=== PATIENT | male | born 1970 | race Caucasian/White ===

== ENCOUNTER 2022-06-07 07:43 | Outpatient (CLI) | payer OTHER ==
--- NOTE | 2022-06-08 09:20 | MRI Report ---
PROCEDURE: THORACIC SPINE WO INDICATIONS: THORACIC BACK PAIN TECHNIQUE: Noncontrast sagittal T1 spine echo and T2 fast spin echo, sagittal STIR, axial T1 and T2 fast spin ec ho through the thoracic spine. COMPARISON: None. FINDINGS: Image quality: Excellent. Alignment and Curvature: There is normal bony alignment. Bone Marrow: Marrow is of normal overall signal. No acute vertebral body compression fractures. Sev eral levels of chronic appearing Schmorl's nodes can be seen. Spinal Cord: Visualized spinal cord is normal in size and signal. Paraspinous Soft Tissues: No paravertebral masses. Miscellaneous: Mild generalized degenerative changes are seen, with scattered levels of mild thoraci c spine disc space narrowing with associated endplate irregularity. No significant level of central c anal narrowing can be seen. No significant neuroforaminal narrowing is seen. IMPRESSION: No acute abnormality can be seen. Several remote appearing Schmorl's nodes can be seen. No significant neural foraminal or central canal narrowing can be seen. Reviewed by: Robert Guevara MD on 06/08/2022 8:19 AM [facility] Approved by: Robert Guevara MD on 06/08/2022 8:19 AM [facility] Station ID: [id number]
== END 2022-06-07 07:44 | disposition home or self-care (01) ==
LOC: DI 07:43
PROVIDERS: ATTEND Nurse Practitioner
DX: M51.44 Schmorl's nodes, thoracic region (principal)

== ENCOUNTER 2023-06-27 09:28 | Outpatient (CLI) | payer OTHER ==
[2023-06-27 09:59] LABS: BASOPHILS % (AUTO) 0.5 %; EOSINOPHILS # (AUTO) 0.1 10^3/uL (0.0-0.7); EOSINOPHILS % (AUTO) 0.8 %; HCT - HEMATOCRIT 43.5 % (42.0-52.0); HGB - HEMOGLOBIN 14.7 g/dL (14.0-18.0); LYMPHOCYTES # (AUTO) 1.6 10^3/uL (1.5-3.5); LYMPHOCYTES % (AUTO) 26.6 %; MEAN CORPUSCULAR HEMOGLOBIN 33.2 pg (27.0-31.0); MEAN CORPUSCULAR HGB CONC 33.8 g/dL (32.0-36.0); MEAN CORPUSCULAR VOLUME 98.2 fL (80.0-94.0); MONOCYTES # (AUTO) 0.4 10^3/uL (0.0-1.0); MONOCYTES % (AUTO) 6.7 %; NEUTROPHILS # (AUTO) 3.9 10^3/uL (1.5-6.6); NEUTROPHILS % (AUTO) 65.2 %; PLT - PLATELET COUNT 256 10^3/uL (130-450); RED BLOOD COUNT 4.43 10^6/uL (4.70-6.10); RED CELL DISTRIBUTION WIDTH 12.1 % (12.0-15.0); WHITE BLOOD COUNT 5.9 x10^3/uL (4.8-10.8)
[2023-06-27 10:24] LABS: ALBUMIN/GLOBULIN RATIO 1.5 (1.0-2.2); ALKALINE PHOSPHATASE 66 IU/L (42-121); ALT ALANINE AMINOTRANSFERASE 10 IU/L (10-60); AST ASPARTATE AMINOTRANSFERASE 16 IU/L (10-42); BILIRUBIN,TOTAL 0.3 mg/dL (0.2-1.0); BUN - BLOOD UREA NITROGEN 12 mg/dL (6-20); CALCIUM 9.5 mg/dL (8.5-10.3); CARBON DIOXIDE - CO2 32 mmol/L (21-32); CHLORIDE 106 mmol/L (101-111); CHOL/HDL RATIO 2.6 (<5.0); CHOLESTEROL 180 mg/dL; CREATININE 0.9 mg/dL (0.6-1.3); GFR - MDRD 89 (>89); GLUCOSE 112 mg/dL (74-104); HDL CHOLESTEROL 68 mg/dL; LDL CHOLESTEROL,CALCULATED 97 mg/dL; LDL/HDL RATIO 1.4 (<3.6); POTASSIUM 4.2 mmol/L (3.5-4.5); SODIUM 141 mmol/L (135-145); TOTAL PROTEIN 6.7 g/dL (6.4-8.9); TRIGLYCERIDES 73 mg/dL (48-352); VLDL CHOLESTEROL 15 mg/dL
[2023-06-27 10:29] LABS: THYROID STIMULATING HORMONE 0.91 uIU/mL (0.34-5.60)
--- NOTE | 2023-06-27 11:55 | XRAY Report ---
PROCEDURE: Lumbar Spine w/Flex/Ext INDICATIONS: DEGENERATIVE JOINT DISEASE TECHNIQUE: AP & Lateral views of the lumbar spine were acquired, followed by flexion & extension nile ding views of the lumbar spine. COMPARISON: None. FINDINGS: Bones: There are 5 nonrib-bearing lumbar vertebral bodies present. Patient is status post posterior f ixation and discectomy at L4-5. There is trace retrolisthesis at L1-2 and L2-3. Mild degenerative elizabeth nges are present throughout the lumbar spine including intervertebral disc space narrowing and osteop hytosis. These are most severe at the superior L2 endplate. No pars interarticularis defects where vi sualized. Soft tissues: Overlying bowel gas pattern is normal. No suspicious soft tissue calcifications. Flexion/extension: There is Limited range of motion from flexion to extension. No subluxation. IMPRESSION: 1. Trace L2-3 and L1-2 anterolisthesis without subluxation on flexion/extension. 2. Mild degenerative change. 3. No spondylolysis where visualized. Reviewed by: Ruby Galvan MD on 06/27/2023 11:53 AM PST Approved by: Ruby Galvan MD on 06/27/2023 11:53 AM PST Station ID: [id number]
== END 2023-06-27 09:29 | disposition home or self-care (01) ==
LOC: DI 09:28
PROVIDERS: ATTEND Internal Medicine
DX: M47.816 Spondylosis without myelopathy or radiculopathy, lumbar region (principal); Z98.1 Arthrodesis status; M43.16 Spondylolisthesis, lumbar region; F10.10 Alcohol abuse, uncomplicated; Z13.220 Encounter for screening for lipoid disorders; Z12.5 Encounter for screening for malignant neoplasm of prostate; F41.8 Other specified anxiety disorders
CPT/HCPCS: 36415; 80053; 80061; 83721; 84153; 84443; 85025

== ENCOUNTER 2023-09-17 13:40 | Outpatient (CLI) | payer OTHER ==
--- NOTE | 2023-09-17 21:53 | XRAY Report ---
PROCEDURE: Lumbar Spine 2-3V INDICATIONS: STRAIN OF MISCLE, FASCIA AND TENDON OF LOWER BACK TECHNIQUE: 3 views of the lumbar spine were acquired. COMPARISON: None. FINDINGS: Bones: 5 [id number] vertebrae are present. There is stable bony alignment. Trace retrolisthesi s of L1 on L2 and L2 on L3 as before. Stable postsurgical changes of fusion and discectomy at L4-5 wi th interbody disc spacer. No acute vertebral body compression fractures. No suspicious bony lesions. No evidence for hardware complication. Soft tissues: Overlying bowel gas pattern is normal. No suspicious soft tissue calcifications. IMPRESSION: Lumbar spine without acute fracture or traumatic malalignment. Stable postsurgical changes and alignm ent status post L4-5 discectomy and fusion. Reviewed by: Derrell Phelps MD on 09/17/2023 9:52 PM PST Approved by: Derrell Phelps MD on 09/17/2023 9:52 PM PST Station ID: [id number]
--- NOTE | 2023-09-17 21:54 | XRAY Report ---
PROCEDURE: Cervical Spine 2-3V INDICATIONS: CERVICAL STRAIN WITH RADICULOPATHY TECHNIQUE: 3 view(s) of the cervical spine were acquired. COMPARISON: None. FINDINGS: Bones: No fractures or dislocations to the T1 level. The lateral masses of C1 appear intact on the odontoid view. No suspicious bony lesions. Straightening of cervical lordosis likely related to pos itioning and/or muscle spasm. Moderate multilevel cervical spondylosis with degenerative endplate elizabeth nges and disc space loss most pronounced at C5-6. No acute compression fracture. Soft tissues: No prevertebral soft tissue swelling. IMPRESSION: No displaced fracture or traumatic subluxation. Straightening of cervical lordosis likely related to positioning and/or concurrent muscle spasms. Moderate multilevel cervical spondylosis most pronounced at C5-6. Reviewed by: Derrell Phelps MD on 09/17/2023 9:53 PM PST Approved by: Derrell Phelps MD on 09/17/2023 9:53 PM PST Station ID: [id number]
== END 2023-09-17 13:41 | disposition home or self-care (01) ==
LOC: DI 13:40
PROVIDERS: ATTEND Physician Assistant Medical
DX: S39.012A Strain of muscle, fascia and tendon of lower back, initial encounter (principal); M47.22 Other spondylosis with radiculopathy, cervical region; Z98.1 Arthrodesis status